=== PATIENT | female | born 2005 | race Two or more races ===

== ENCOUNTER 2025-03-17 10:47 | Emergency (ER) | payer MEDICAID, OTHER ==
[~2025-03-17] VITALS: Ht 180.3 cm; Wt 140.2 kg
[2025-03-17 10:50] VITALS: TEMP 98
[2025-03-17 12:43] LABS: Urine Protein, UAD Negative (Negative)
[2025-03-17 12:48] VITALS: BP 133/87; PULSE 105
[2025-03-17 12:50] VITALS: RESP 18; O2SAT 98
--- NOTE | 2025-03-17 12:53 | ED.PDOC ---
Back pain HPI HPI Comments 20 y.o female presents to the ED for a chief complaint of lower back pain radiating down her left leg that started 1 week ago. Patient reports pain worsens when bearing weight to left leg, rating it a 9/10 versus at rest going down to 6/10. Patient denies any recent falls, injuries, heavy lifting, or twisting. Patient mentions pain does worsen also with a slight bend. She denies any numbness or tingling sensation. Chief Complaint: Back Pain Time Seen by MD: 12:44 Reviewed Notes: Nurses Notes, Medications, Allergies Allergies: Coded Allergies: NO KNOWN ALLERGIES (Unverified , 03/17/25) Home Meds Active Scripts Cyclobenzaprine Hcl (Cyclobenzaprine Hcl) 10 Mg Tab, 10 MG PO TID for 10 Days, #30 TAB Prov:CHEPE UREÑA MD 03/17/25 Naproxen (Naproxen) 375 Mg Tab, 375 MG PO TID for 7 Days, #21 TAB Prov:CHEPE UREÑA MD 03/17/25 Nitrofurantoin Monohydrate Mac (Macrobid) 100 Mg Cap, 100 MG PO BID for 7 Days, #14 CAP Prov:CHEPE UREÑA MD 03/17/25 Information Source: Patient Mode of Arrival: Ambulatory Timing: Weeks (1) Duration: Since onset Location of Back pain: (B) Lower back Severity: Moderate Quality: Sharp Onset: Spontaneous Modifying Factors: Nothing; No Movement, No Twisting, No Walking, No Other Past Medical History PAST MEDICAL HISTORY: Denies Surgical History: Denies all surgeries FORESTRY AIDE History: No Pertinent FORESTRY AIDE History Family History Family History: Reviewed,noncontributory to illness, No family hx of Cancer, No family hx of DM, No family hx of Heart jeff, No family hx of HTN, No family hx o fKidney jeff, No family hx of Liver jeff, No family hx of Lung jeff, No family hx of Stroke Social History Smoker: Non-Smoker Alcohol: Denies ETOH Use Drugs: Denies Drug Use Lives In: Home Constitutional: denies: chills, diaphoresis, fatigue, fever, malaise, sweats, weakness, others EENTM: denies: blurred vision, double vision, ear bleeding, ear discharge, ear drainage, ear pain, ear ringing, eye pain, eye redness, hearing loss, mouth pain, mouth swelling, nasal discharge, nose bleeding, nose congestion, nose pain, photophobia, tearing, throat pain, throat swelling, voice changes, others Respiratory: denies: cough, hemoptysis, orthopnea, SOB at rest, shortness of breath, SOB with excertion, stridor, wheezing, others Cardiovascular: denies: chest pain, dizzy spells, diaphoresis, Dyspnea on exertion, edema, irregular heart beat, left arm pain, lightheadedness, palpitations, PND, syncope, others Gastrointestinal: denies: abdomen distended, abdominal pain, blood streaked bowels, constipated, diarrhea, dysphagia, difficulty swallowing, hematemesis, melena, nausea, poor appetite, poor fluid intake, rectal bleeding, rectal pain, vomiting, others Genitourinary: denies: abnormal vagina bleeding, burning, dyspareunia, dysuria, flank pain, frequency, hematuria, incontinence, pain, , vagina discharge, urgency, others Neurological: denies: dizziness, fainting, headache, left sided numbness, left sided weakness, numbness, paresthesia, pre-existing deficit, right sided numbness, right sided weakness, seizure, speech problems, tingling, tremors, weakness, others Musculoskeletal: reports: back pain; denies: gout, joint pain, joint swelling, muscle pain, muscle stiffness, neck pain, others Integumetry: denies: bruises, change in color, change in hair/nails, dryness, laceration, lesions, lumps, rash, wounds, others Allergic/Immunocompromised: denies: Difficulty Healing, Frequent Infections, Hives, Itching, others Hematologic/Lymphatic: denies: anemia, blood clots, easy bleeding, easy bruising, swollen glands, others Endocrine: denies: excessive hunger, excessive sweating, excessive thirst, excessive urination, flushing, intolerance to cold, intolerance to heat, unexplained weight gain, unexplained weight loss, others Psychiatric: denies: anxiety, bipolar disorder, depression, hopeless, panic disorder, schizophrenia, sleepless, suicidal, others All Other Systems: Reviewed and Negative Physical Exam General Appearance: Moderate Distress, Obese HEENT: Normal ENT Inspection, PERRL/EOMI Neck: Full Range of Motion, Non-Tender, Normal, Normal Inspection Respiratory: Chest Non-Tender, Lungs Clear, No Accessory Muscle Use, No Respiratory Distress, Normal Breath Sounds Cardiovascular: No Edema, No JVD, No Murmur, No Gallop, Normal Peripheral Pulses, Regular Rate/Rhythm Breast Exam: Deferred Gastrointestinal: No Organomegaly, Non Tender, No Pulsatile Mass, Normal Bowel Sounds, Soft Genitalia: Deferred Pelvic: Deferred Rectal: Deferred Extremities: No calf tenderness, Normal capillary refill, Normal inspection, Normal range of motion, Non-tender, No pedal edema Musculoskeletal : Location: Left Extremity Location: Back Apperance: Limited ROM, Tenderness: Moderate Neurologic: Alert, supervisor beam department II-XII nml as Tested, No Motor Deficits, Normal Affect, Normal Mood, No Sensory Deficits Cerebellar Function: Normal Reflexes: Normal Skin: Dry, Normal Color, Warm Peripheral Pulses: 1+ carotid (R), 1+ carotid (L) Lymphatic: No Adenopathy Was a procedure done? Was a procedure done?: No Back Pain Differential Dx Differential Diagnosis: DJD, Musculoskeletal Pain, Strain, Urolithiasis, Other (sprain ) X-Ray, Labs, Meds, VS Vital Signs Date Time Temp Pulse Resp B/P (MAP) Pulse Ox O2 Delivery O2 Flow Rate FiO2 03/17/25 12:50 18 98 Room Air* 0 21 03/17/25 12:48 105 18 133/87 (102) 98 03/17/25 10:50 98.0 122 18 159/99 97 98.0 Lab Test 03/17/25 11:05 Range/Units Urine Color Yellow Yellow Urine Clarity Hazy H Clear Urine pH 5.5 5.0-9.0 Urine Specific [place] 1.021 1.001-1.035 Urine Protein Negative Negative Urine Ketones Negative Negative Urine Blood Negative Negative /uL Urine Nitrite Negative Negative Urine Bilirubin Negative Negative Urine Urobilinogen Normal Negative mg/dL Urine Leukocyte Esterase 2+ Negative /uL Urine RBC 2 0 - 4 /hpf Urine Microscopic WBC 5 0-5 /HPF Urine Squamous Epithelial Cells Few <5 /hpf Urine Bacteria Few H None Seen /hpf Urine Glucose Normal Normal mg/dL Current Medications Medications (Trade) Dose Ordered Sig/Kris Route Start Time Stop Time Status Last Admin Ketorolac Tromethamine (Toradol Injection) 60 mg ONCE ONCE IM 03/17/25 13:00 03/17/25 13:01 DC 03/17/25 12:55 X-Ray, Labs, Meds, VS Comment [facility] of left-sided back pain for one week Patient has definitely back spasms but she also has a UTI We will treat both at this time and she will need to see your doctor for further care Time of 1ST Reevaluation: 12:52 Reevaluation 1ST: Unchanged Time of 2ND Reevaluation: 12:57 Reevaluation 2ND: Unchanged Consultation: PCP Patient Education/Counseling: Diagnosis, Treatment, Prognosis, Need For Follow Up Family Education/Counseling: Diagnosis, Treatment, Prognosis, Need For Follow Up, No Family Present SEPSIS Sepsis Screen Date sepsis recognized/suspect: Mar 17, 2025 Time Sepsis recognized/suspect: 1050 Recent Procedure: No On Antibiotic Therapy: No Respiratory Rate >20: No Heart Rate >90: Yes Temp<36 C (96.8 F) or >38.3 C: No SBP <90 or MAP <65 mmHG: No New Acute Mental Status Change: No Is the patient on CPAP, BIPAP,: No Vital Signs Date Time Temp Pulse Resp B/P (MAP) Pulse Ox O2 Delivery O2 Flow Rate FiO2 03/17/25 12:50 18 98 Room Air* 0 21 03/17/25 12:48 105 18 133/87 (102) 98 03/17/25 10:50 98.0 122 18 159/99 97 98.0 Medications Medications Dose Ordered Sig/Kris Route Start Time Stop Time Status Last Admin Dose Admin Ketorolac Tromethamine 60 mg ONCE ONCE IM 03/17/25 13:00 03/17/25 13:01 DC 03/17/25 12:55 Departure 1 Departure Time of Disposition: 17:35 Impression: Primary Impression: Musculoskeletal pain Additional Impressions: Lumbar sprain Qualified Codes: S33.5XXA - Sprain of ligaments of lumbar spine, initial encounter UTI (urinary tract infection) Qualified Codes: N30.00 - Acute cystitis without hematuria Disposition: 01 HOME / SELF CARE / HOMELESS Condition: Fair Additional Instructions: Local heat rest and follow up with your PCP e-Prescriptions Cyclobenzaprine Hcl (Cyclobenzaprine Hcl) 10 Mg Tab 10 MG PO TID for 10 Days, #30 TAB Prov: CHEPE UREÑA MD 03/17/25 Naproxen (Naproxen) 375 Mg Tab 375 MG PO TID for 7 Days, #21 TAB Prov: CHEPE UREÑA MD 03/17/25 Nitrofurantoin Monohydrate Mac (Macrobid) 100 Mg Cap 100 MG PO BID for 7 Days, #14 CAP Prov: CHEPE UREÑA MD 03/17/25 Discharged With: Self Critical Care Note Critical Care Time?: No Stability Stability form required: No I personally scribed for CHEPE UREÑA MD ([email or web address]) on 03/17/25 at 12:53. Electronically submitted by Candida Armstrong ([facility]). CHEPE UREÑA MD Mar 17, 2025 12:53
[2025-03-17] MEDS: KETOROLAC TROMETH 60MG/2ML VIAL IM ONE (12:55)
[2025-03-17] MEDS ORDERED: NAPR-957 PO (13:01)
[2025-03-17] MEDS ORDERED: NITR-87 PO (13:01)
[2025-03-17] MEDS ORDERED: CYCL-839 PO (13:01)
== END 2025-03-17 13:12 | disposition home or self-care (01) ==
LOC: ER 10:47
DX: S33.5XXA Sprain of ligaments of lumbar spine, initial encounter (principal); M79.18 Myalgia, other site; X58.XXXA Exposure to other specified factors, initial encounter; Y93.89 Activity, other specified; Y92.89 Other specified places as the place of occurrence of the external cause; Y99.8 Other external cause status
CPT/HCPCS: 81001; 96372; 99283; J1885